=== PATIENT | male | born 1995 | race Two or more races ===

== ENCOUNTER 2017-01-22 17:55 | Emergency (ER) | payer BC ==
--- NOTE | 2017-01-22 19:32 | EDPHY ---
H & P Stated Complaint: st/exudative tonsills/fever/chills strep neg/ is on abx Source: Patient - Personal History Current Tetanus/Diphtheria Vaccine: Yes - Medical/Surgical History Hx Asthma: No Hx Chronic Respiratory Disease: No Hx Diabetes: No Hx Cardiac Disease: No Hx Renal Disease: No Hx Cirrhosis: No Hx Alcoholism: No Hx HIV/AIDS: No Hx Splenectomy or Spleen Trauma: No Other PMH: gerd - Social History Smoking Status: Never smoked Time Seen by Provider: 01/22/17 19:23 HPI/ROS: CHIEF COMPLAINT: sore throat, fever, body aches HISTORY OF PRESENT ILLNESS: 21-year-old male presents emergency department complaining of a week of a mild sore throat and 4 days of fevers, chills and body aches. Patient states yesterday and today he has had severe body aches and rigors. Patient was seen 4 days ago at an urgent care had a negative rapid strep and was started on a Z-Aly. He is taking 1 Aleve in the morning and 1 Aleve at night. Patient denies nausea or vomiting, decreased oral intake due to sore throat when swallowing. He denies abdominal pain, no diarrhea. Patient reports he gets strep throat every year, this feels worse than usual. Patient denies cough, no nasal congestion. REVIEW OF SYSTEMS: A comprehensive 10 point review of systems is otherwise negative aside from elements mentioned in the history of present illness. (Soco Olivares) - Physical Exam Exam: General: Alert, nontoxic. ENT: Tympanic membranes clear, external auditory canal, external ear and surrounding soft tissue including over the mastoid unremarkable. Nasopharynx is injected, there is no rhinorrhea. Oropharynx with erythema. There is bilateral exudate. Bilateral tonsillar hypertrophy. No asymmetry. The uvula is midline. No elevation of tongue. There is no hoarseness. No drooling, patient has good control of their oral secretions. No trismus. No stridor. Cardiac: Tachycardic rate and regular rhythm. Respiratory: Lungs clear to auscultation bilaterally. Neurological: no meningismus. Skin: No rashes. (Soco Olivares) Constitutional: Initial Vital Signs Temperature (C) 37.6 C 01/22/17 17:59 Heart Rate 128 H 01/22/17 17:59 Respiratory Rate 20 01/22/17 17:59 Blood Pressure 131/85 H 01/22/17 17:59 O2 Sat (%) 97 01/22/17 17:59 O2 Delivery Mode Room Air Allergies/Adverse Reactions: amoxicillin Allergy (Verified 01/22/17 17:58) Home Medications: Medication Instructions Recorded AZITHROMYCIN 01/22/17 Fluticasone Nasal [Flonase Nasal 1 sprays NASAL DAILY #1 mdi 01/22/17 [facility] (RX)] Nexium 01/22/17 Medical Decision Making ED Course/Re-evaluation: Patient is given Tylenol and ibuprofen along with Decadron on arrival to the emergency department. IV established, mono spot has been ordered and the patient is given 2L of IV fluids. Monospot is negative. Patient's temperature is down to 37.3. He reports he is feeling better. Patient will be discharged home with a diagnosis of tonsillitis. He is to continue his antibiotics. Patient will be given a prescription for Flonase. He is given instructions to alternate Tylenol with ibuprofen. Plenty of fluids. He is given strict return precautions for any worsening symptoms, difficulty breathing, unable to eat or drink, any new symptoms or concerns. (Soco Olivares) Differential Diagnosis: Diagnosis considered but not limited to strep pharyngitis, tonsillitis, viral pharyngitis, Krish's angina, mononucleosis (Soco Olivares) Other Provider: The patient was evaluated and managed by the Physician Reference Assistant/ Nurse Practitioner. My co-signature indicates that I have reviewed this chart and I agree with the findings and plan of care as documented. I am the secondary supervising physician. (Allie Vaughn) - Data Points Laboratory Results: 01/22/17 20:30 Monoscreen NEGATIVE (NEGATIVE) Medications Given: Discontinued Medications Acetaminophen (Tylenol) 1,000 mg PO EDNOW ONE Stop: 01/22/17 19:50 Last Admin: 01/22/17 19:55 Dose: 1,000 mg Dexamethasone (Decadron) 10 mg PO EDNOW ONE Stop: 01/22/17 19:50 Last Admin: 01/22/17 19:55 Dose: 10 mg Sodium Chloride (Ns) 1,000 mls @ 0 mls/hr IV ONCE ONE PRN Reason: Wide Open Stop: 01/22/17 20:20 Last Admin: 01/22/17 20:53 Dose: 1,000 mls Sodium Chloride (Ns) 1,000 mls @ 0 mls/hr IV ONCE ONE PRN Reason: Wide Open Stop: 01/22/17 21:02 Last Admin: 01/22/17 21:08 Dose: 1,000 mls Ibuprofen (Motrin) 600 mg PO ONCE ONE Stop: 01/22/17 19:50 Last Admin: 01/22/17 19:55 Dose: 600 mg Departure - Departure Disposition: Home, Routine, Self-Care Clinical Impression: Acute pharyngitis Condition: Good Instructions: Pharyngitis (ED), Tonsillitis (ED) Additional Instructions: Drink plenty of fluids, take 600 mg of ibuprofen every 8 hours with food, alternate this with 650 mg of Tylenol every 8 hours so you're taking 1 or the other every 4 hours but not the same medication more than every 8 hours. Humidifier at night, rest. Use 1 spray of Flonase in each nostril daily for 7 days. Return to the emergency department for worsening symptoms, new symptoms or concerns. Referrals: NONE *PRIMARY CARE P,. [Primary Care Provider] - As per Instructions Prescriptions: Fluticasone Nasal [Flonase Nasal [facility] (RX)] 1 sprays NASAL DAILY #1 mdi
[2017-01-22] MEDS ORDERED: ACETAMINOPHEN 500 MG TAB PO ONE (19:49)
[2017-01-22] MEDS ORDERED: DEXAMETHASONE 4 MG TAB PO ONE (19:49)
[2017-01-22] MEDS ORDERED: IBUPROFEN 600 MG TAB PO ONE (19:49)
[2017-01-22] MEDS ORDERED: NS 1,000 ML IV ONE ×2 (20:19→21:01)
[2017-01-22 21:58] VITALS: BP 127/58; PULSE 106; RESP 16; TEMP 99.5; O2SAT 96
== END 2017-01-22 22:20 | disposition home or self-care (01) ==
DX: J02.9 Acute pharyngitis, unspecified (principal)

== ENCOUNTER 2019-02-05 21:40 | Emergency (ER) | payer BC | END 2019-02-05 23:05 | disposition home or self-care (01) ==